=== PATIENT | male | born 1975 | race Caucasian/White ===

== ENCOUNTER 2021-03-22 15:11 | Outpatient (CLI) | payer OTHER | END 2021-03-22 15:12 | disposition home or self-care (01) | LOC: BURRAD 15:11 | PROVIDERS: ATTEND Family Medicine | DX: M54.5 Low back pain (principal); M89.9 Disorder of bone, unspecified; M46.06 Spinal enthesopathy, lumbar region | CPT/HCPCS: 72110 ==